=== PATIENT | female | born 1975 | race African-American/Black ===

== ENCOUNTER 2018-01-24 09:18 | Outpatient (CLI) | payer MEDICAID ==
--- NOTE | 2018-01-26 11:55 | MMO ---
BILATERAL SCREENING MAMMOGRAM: Date: 01/24/18 COMPARISON: 10/28/16. HISTORY: Screening mammography. FINDINGS: This patient's mammogram was interpreted with the assistance of computer-aided detection. Scattered fibroglandular densities are present. On the right MLO image, within the retroareolar region, middle depth, there is a focal area of new ir regular parenchymal density measuring 1.2 cm, with suggestion of architectural distortion. On the left MLO image, in the posterior depth, posterior to the nipple, there is an oval, lobulated, 1.4 cm area of increased breast density, not definitely seen on the prior exam. Both the right breast finding and the left breast finding do not demonstrate a definite CC correlate. IMPRESSION: BIRADS 0: Incomplete: Need Additional Imaging Evaluation and/or Prior Mammograms for Comparison Focal asymmetry in right breast with a suggestion of architectural distortion. Focal asymmetry in lef t breast with a suggestion of lobulated mass. Both areas should be further assessed with diagnostic m ammography and focused breast ultrasound. The facility will notify patient of need for additional imaging services. POS: [facility]
== END 2018-01-24 09:19 | disposition home or self-care (01) ==
LOC: SCSMAMMO 09:18
PROVIDERS: ATTEND Nurse Practitioner Women's Health
DX: Z12.31 Encounter for screening mammogram for malignant neoplasm of breast (principal); N64.89 Other specified disorders of breast
CPT/HCPCS: 77067

== ENCOUNTER 2018-03-14 13:28 | Outpatient (CLI) | payer MEDICAID | END 2018-03-14 13:29 | disposition home or self-care (01) | LOC: BICMAMMO 13:28 | PROVIDERS: ATTEND Nurse Practitioner Women's Health | DX: R92.2 Inconclusive mammogram (principal) | CPT/HCPCS: 77066; G0279 ==

== ENCOUNTER 2021-12-10 09:43 | Outpatient (CLI) | payer BC | END 2021-12-10 09:44 | disposition home or self-care (01) | LOC: BICRAD 09:43 | PROVIDERS: ATTEND Nurse Practitioner Women's Health | DX: M25.461 Effusion, right knee (principal); M17.11 Unilateral primary osteoarthritis, right knee ==